=== PATIENT | female | born 1965 | race Caucasian/White ===

== ENCOUNTER 2019-03-10 10:40 | Inpatient (IN) | payer SELFPAY ==
[2019-03-10 11:28] VITALS: BMI 28.9
[2019-03-10] MEDS ORDERED: VANCOMYCIN 1.5 GM in NA CHLORIDE 0.9% 500 ML IVPB ONE (12:00)
[2019-03-10 12:02] LABS: Absolute Lymphocytes (CBC) 2.3 K/uL (0.7-4.9); Basophils % 0.6 % (0-1.3); Eosinophils % 4.5 % (0-4.4); Lymphocytes % 29.1 % (15.3-44.8); MPV 8.1 fL (7.6-11.3); Monocytes % 7.3 % (3.3-12.3); RBC Red Blood Cell Count 4.17 M/uL (3.86-4.86)
[2019-03-10 12:25] LABS: Albumin 4.1 g/dL (3.4-5.0); Bilirubin Total 0.3 mg/dL (0.2-1.0); Potassium 4.2 mmol/L (3.5-5.1); Protein, Total 8.2 g/dL (6.4-8.2)
[2019-03-10] MEDS: Levofloxacin500mg IV 500 MG/100 ML BAG IV SCH (12:47)
[2019-03-10 13:17] LABS: Urine Appearance CLOUDY; Urine Bilirubin NEGATIVE (NEG); Urine Blood NEGATIVE (NEG); Urine Color YELLOW; Urine Glucose NEGATIVE (NEG); Urine Protein TRACE (NEG); Urine Specific Gravity >=1.030 (1.005-1.030); Urine Urobilinogen 0.2 mg/dL (0.2-1.0)
[2019-03-10 13:39] LABS: Urine Bacteria 20-50 /HPF (<20); Urine Culture Reflex Order REFLEXED; Urine RBC NONE SEEN /HPF (NONE SEEN)
--- NOTE | 2019-03-10 14:48 | P.HP ---
Certification for Inpatient Patient admitted to: Inpatient With expected LOS: >2 Midnights Practitioner: I am a practitioner with admitting privileges, knowledge of patient current condition, hospital course, and medical plan of care. Services: Services provided to patient in accordance with Admission requirements found in Title 42 Section 412.3 of the Code of Federal Regulations Patient History Date of Service: 03/10/19 Reason for admission: Cellulitis, possible osteomyelitis History of Present Illness: This is a 53-year-old female with past medical history of hypertension and chronic ulceration on the legs who had an ankle surgery on January 18, 2019 after an ankle fracture. She had her cast removed on Wednesday and today and Dr. Calles' s office, she was noted to have erythema around the incision and the plate was sticking out/seen. She was then directly admitted from his office in to our facility. She states that she has had intermittent subjective fevers and chills. She does take Haynes for pain control. Cultures were drawn in orthopedics office. At the time of my exam, she was alert oriented x3 in no acute distress. She will be admitted for further management/evaluation of her cellulitis and possible osteomyelitis. Allergies amoxicillin Allergy (Verified 02/18/15 16:14) Rash cefixime [From Suprax] Allergy (Verified 05/01/12 08:39) Rash sulfamethoxazole [From Bactrim] Allergy (Verified 02/18/15 16:14) Nausea/Vomiting trimethoprim [From Bactrim] Allergy (Verified 02/18/15 16:14) Nausea/Vomiting Home medications list reviewed: Yes Home Medications: Hydrocodone Bit/Acetaminophen [Hydrocodon-Acetaminophen 5-325] 1 each PO Q8HP Lisinopril [Prinivil] 12.5 mg PO BID 03/10/19 Multivitamin [Multiple Vitamins] 1 each PO DAILY 03/10/19 - Past Medical/Surgical History Has patient received pneumonia vaccine in the past: No Diabetic: No -: HTN -: Obesity -: HTN -: Lt broken ankle -: Lt ankle sx - Social History Smoking Status: Never smoker Alcohol use: No CD- Drugs: No Caffeine use: No Place of Residence: Home Review of Systems 10-point ROS is otherwise unremarkable Physical Examination - Vital Signs Temperature: 97.7 F Blood Pressure: 143/78 Pulse: 78 Respirations: 16 Pulse Ox (%): 100 - Physical Exam General: Alert, In no apparent distress, Oriented x3 HEENT: Atraumatic, PERRLA, Mucous membr. moist/pink, EOMI, Sclerae nonicteric Neck: Supple, 2+ carotid pulse no bruit, No LAD, Without JVD or thyroid abnormality Respiratory: Clear to auscultation bilaterally, Normal air movement Cardiovascular: Regular rate/rhythm, Normal S1 S2 Gastrointestinal: Normal bowel sounds, No tenderness Musculoskeletal: No tenderness Integumentary: Erythema, Other (Left ankle: Wound noted on ankle, no discharge. Complete seen through the incision. Erythema surrounding site of incision.) Neurological: Normal gait, Normal speech, Normal strength at 5/5 x4 extr, Normal tone, Normal affect - Studies Laboratory Data (last 24 hrs) 03/10/19 11:45: Sodium 140, Potassium 4.2, BUN 19 H, Creatinine 0.74, Glucose 103, Total Bilirubin 0.3, AST 15, ALT 23, Alkaline Phosphatase 92 03/10/19 11:45: WBC 7.8, Hgb 12.9, Hct 38.0, Plt Count 316 Assessment and Plan - Problems (Diagnosis) (1) Postoperative cellulitis of surgical wound Current Visit: Yes Status: Acute Plan: Continuing the antibiotics with Levaquin and vancomycin. Labs ordered, pending She will need long-term IV antibiotics x4 weeks. Social work consulted for a long-term IV antibiotics. (2) Open left ankle fracture Current Visit: Yes Status: Acute Plan: Status post surgical fixation on January 18, 2019. Dr. Calles on board. Continue IV antibiotics. Pending OR tomorrow for washout. Qualifiers: Encounter type: sequela Open fracture type: open type I or II Qualified Code(s): S82.892S - Other fracture of left lower leg, sequela (3) Chronic ulcer skin Current Visit: Yes Status: Acute (4) Hypertension Current Visit: No Status: Chronic Plan: Stable, continue home medications. Qualifiers: Hypertension type: essential hypertension Qualified Code(s): I10 - Essential (primary) hypertension (5) Overweight (BMI 25.0-29.9) Current Visit: No Status: Acute - Plan DVT prophylaxis: Hold for procedure tomorrow GI prophylaxis: None Diet: Heart healthy; NPO after midnight for OR procedure tomorrow Disposition: Admit to floor with tele. Start IV antibiotics, pending procedure in the OR tomorrow. - Advance Directives Does patient have a Living Will: No Does patient have a Durable POA for Healthcare: No Time Spent Managing Pts Care (In Minutes): 55
[2019-03-10] MEDS: LISINOPRIL 5 MG TAB PO SCH (20:23)
[2019-03-10] MEDS: HYDROCODONE/APAP 5/325 MG TAB PO PRN (20:23)
[2019-03-11] MEDS: NA CHLORIDE 0.9% 1,000 ML IV SCH ×3 (00:05→19:22)
[2019-03-11] MEDS: VANCOMYCIN 1.5 GM in NA CHLORIDE 0.9% 500 ML IVPB SCH ×2 (00:05→13:16)
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
[2019-03-11 06:08] LABS: Absolute Lymphocytes (CBC) 1.7 K/uL (0.7-4.9); Basophils % 0.6 % (0-1.3); Eosinophils % 5.2 % (0-4.4); Hematocrit 34.7 % (36.0-45.0); Lymphocytes % 29.4 % (15.3-44.8); MPV 8.2 fL (7.6-11.3); Monocytes % 7.9 % (3.3-12.3); RBC Red Blood Cell Count 3.84 M/uL (3.86-4.86)
[2019-03-11 06:15] LABS: Potassium 4.1 mmol/L (3.5-5.1)
[2019-03-11] MEDS ORDERED: PROPOFOL 200 MG/20 ML VIAL IV ONE (08:11)
[2019-03-11] MEDS ORDERED: FENTANYL CITR 100 MCG/2 ML ONE (08:11)
[2019-03-11] MEDS ORDERED: LIDOCAINE 2% MPF 5 ML VIAL ONE (08:12)
[2019-03-11] MEDS: LISINOPRIL 5 MG TAB PO SCH ×2 (08:17→20:38)
[2019-03-11] MEDS ORDERED: DEXAMETHASONE 10 MG/ML VIAL ONE (08:43)
[2019-03-11] MEDS ORDERED: ONDANSETRON 4 MG/2 ML VIAL ONE (08:44)
[2019-03-11] MEDS ORDERED: KETOROLAC 30 MG/ML INJ ONE (08:44)
--- NOTE | 2019-03-11 09:13 | P.OP ---
Preoperative diagnosis: left ankle wound with retained implant Postoperative diagnosis: same Primary procedure: Irrigation and debridement ankle with removal of plate/screws Estimated blood loss: 20 ccs Complications: None Transferred to: Recovery Room Condition: Good
[2019-03-11] MEDS: Levofloxacin500mg IV 500 MG/100 ML BAG IV SCH (10:03)
--- NOTE | 2019-03-11 10:14 | OP ---
Date of Procedure: 03/11/2019 Surgeon: Nicolas Calles MD Preoperative Diagnosis: Left ankle wound, status post open reduction and internal fixation of ankle with exposed hardware. Postoperative Diagnosis: Left ankle wound, status post open reduction and internal fixation of ankle with exposed hardware. Procedure: Removal of left ankle lateral plate with irrigation and debridement of the wound with mac sure of the new wound, but leaving the old wound open. Estimated Blood Loss: 20 cc. Complications: There were no complications. Specimen: No pathology specimen sent. Indication For Operation: Ms. Wright is a patient who unfortunately has had trouble with her lower ex tremities and ulcer formation in the past, unfortunately obtained an ankle fracture, dislocation. Ca re was taken to allow the skin to wrinkle and for swelling to be decreased; however, there was always a question of wound healing. Unfortunately, ankle fracture, dislocation needed treatment. Therefor e, she underwent an open reduction and internal fixation of both the medial and lateral malleolus. W hen she returned to clinic, her skin looked fine and stephanie were removed. She was then placed in a long-leg cast. She came to see me in my office at 6 weeks with no apparent complaints. The cast was taken off. She did have some scabbing in that area; however, otherwise was without erythema or sign ificant pain. She was told to watch carefully as the scabbing evolved and she did. She said there w as a black area there, but unfortunately, this did reveal a wound with exposed hardware. She came to see me in my office the next day. She was immediately admitted to the hospital for IV antibiotics a nd taken to the operating room today for removal of plate and irrigation and debridement. She states she understands things as presented and wished to proceed. Description Of Procedure: The patient was taken to the operating room and placed in supine position. General anesthesia was obtained by staff. Following this, a well-padded tourniquet placed on super ior left thigh. Left lower extremity was than prepped and draped in usual sterile fashion for an ope n wound. This was followed by elevating the leg, but not exsanguinated and tourniquet was raised. A ttention was first turned to the ankle. Near the distal end of the plate extending up to the 2 dista l screws is an open area. It is elliptical in shape and probably 1.5 cm at its widest part with expo sed plate and hardware. It was initially irrigated with several cc of jet lavage. Then, the incisio n is extended up to the tip of the plate. All of this area did not show any sign of trouble. The sk in is well healed. There is no erythema or sign of infection. The screws were then removed from the plate without difficulty and plate was removed. A curette is used at the distal 2 screw holes, and the wound was jet lavaged with multiple liters of sterile saline at low pressure. The superior aspec t of the incision which was established today was reclosed. The inferior aspect was left open with a small saline soaked 4 x 4 and then overlaid by other 4 x 4's and wrapped with Kerlix. The patient w as then awakened and taken to the operating room in good condition. It should be noted that the frac ture line itself was not visible at this time and that the screw holes as well as the wound itself rincon ve no sign of purulence. There is also no surrounding erythema. The patient was awakened and taken to recovery room in good condition. /CLARENCE Voice ID: [id number] Report ID: [id number]
--- NOTE | 2019-03-11 10:48 | RAD REPORT ---
EXAM DESCRIPTION: RAD - Ankle Left 2 View - 03/11/2019 9:34 am FINDINGS: There were 3 portable C-arm views submitted from a fluoroscopic assisted left ankle fractu re repair. No suspicious or unexpected finding. Fluoro time was 0.1 minutes.
--- NOTE | 2019-03-11 12:04 | P.PN ---
Subjective Date of Service: 03/11/19 Chief Complaint: Cellulitis, possible osteomyelitis Subjective: No C/O voiced, Improving Patient seen and examined at bedside. No family at bedside. Chart reviewed and case discussed with nursing staff. No acute events noted overnight Pending OR for surgery today Review of Systems 10-point ROS is otherwise unremarkable Physical Examination - Vital Signs Temperature: 97.3 F Blood Pressure: 141/81 Pulse: 78 Respirations: 16 Pulse Ox (%): 98 - Physical Exam General: Alert, In no apparent distress, Oriented x3 HEENT: Atraumatic, PERRLA, EOMI Neck: Supple, JVD not distended Respiratory: Clear to auscultation bilaterally, Normal air movement Cardiovascular: Regular rate/rhythm, Normal S1 S2 Gastrointestinal: Normal bowel sounds, No tenderness Musculoskeletal: No tenderness Integumentary: Skin breakdown, Skin lesion, Other (Hardware seen in left ankle) Neurological: Normal speech, Normal tone, Normal affect - Studies Laboratory Data (last 24 hrs) 03/11/19 05:37: Sodium 142, Potassium 4.1, BUN 13, Creatinine 0.70, Glucose 107 H 03/11/19 05:37: WBC 5.8 D, Hgb 12.2, Hct 34.7 L, Plt Count 270 03/10/19 11:45: Sodium 140, Potassium 4.2, BUN 19 H, Creatinine 0.74, Glucose 103, Total Bilirubin 0.3, AST 15, ALT 23, Alkaline Phosphatase 92 03/10/19 11:45: WBC 7.8, Hgb 12.9, Hct 38.0, Plt Count 316 Microbiology Data (last 24 hrs): 03/10/19 09:45 Wound - Left Ankle Gram Stain - Final Assessment And Plan - Current Problems (Diagnosis) (1) Postoperative cellulitis of surgical wound Current Visit: Yes Status: Acute Plan: Continue IV antibiotics with Levaquin and vancomycin. She will need long-term IV antibiotics x4 weeks. Infectious disease consulted, awaiting recommendations. Social work consulted for a long-term IV antibiotics. (2) Open left ankle fracture Current Visit: Yes Status: Acute Plan: Status post surgical fixation on January 18, 2019. Dr. Calles on board. Continue IV antibiotics. Pending OR today for washout and hardware removal. Qualifiers: Encounter type: sequela Open fracture type: open type I or II Qualified Code(s): S82.892S - Other fracture of left lower leg, sequela (3) Chronic ulcer skin Current Visit: Yes Status: Acute (4) Hypertension Current Visit: No Status: Chronic Plan: Stable, continue home medications. Qualifiers: Hypertension type: essential hypertension Qualified Code(s): I10 - Essential (primary) hypertension (5) Overweight (BMI 25.0-29.9) Current Visit: No Status: Chronic - Plan DVT prophylaxis: SCDs GI prophylaxis: None Diet: Heart healthy after procedure Disposition: Continue IV antibiotics, pending procedure in the OR today, half-way IV antibiotics setup
[2019-03-11] MEDS: HYDROCODONE/APAP 5/325 MG TAB PO PRN (20:38)
[2019-03-12] MEDS: VANCOMYCIN 1.5 GM in NA CHLORIDE 0.9% 500 ML IVPB SCH ×2 (01:38→14:15)
[2019-03-12 05:38] LABS: Absolute Lymphocytes (CBC) 1.9 K/uL (0.7-4.9); Basophils % 0.2 % (0-1.3); Eosinophils % 0.3 % (0-4.4); Hematocrit 31.6 % (36.0-45.0); Lymphocytes % 30.5 % (15.3-44.8); MPV 8.4 fL (7.6-11.3); Monocytes % 7.2 % (3.3-12.3); RBC Red Blood Cell Count 3.45 M/uL (3.86-4.86)
[2019-03-12 05:49] LABS: BUN Blood Urea Nitrogen 12 mg/dL (7-18); Bicarbonate 26 mmol/L (21-32); Glucose Level 100 mg/dL (74-106); Magnesium 2.2 mg/dL (1.8-2.4); Phosphorus 3.3 mg/dL (2.5-4.9); Potassium 3.6 mmol/L (3.5-5.1); Sodium Level 144 mmol/L (136-145)
[2019-03-12] MEDS: NA CHLORIDE 0.9% 1,000 ML IV SCH ×3 (06:00→16:00)
[2019-03-12] MEDS: LISINOPRIL 5 MG TAB PO SCH ×2 (08:34→20:51)
[2019-03-12] MEDS ORDERED: POTASSIUM CL SA 10 MEQ TAB PO ONE (09:00)
--- NOTE | 2019-03-12 10:12 | P.PN ---
Subjective Date of Service: 03/12/19 Chief Complaint: Cellulitis, possible osteomyelitis Subjective: Improving Patient seen and examined at bedside. No family at bedside. Chart reviewed and case discussed with nursing staff. No acute events noted overnight Status post hardware removal and washout. Doing well this morning. Denies any pain at this time. Review of Systems 10-point ROS is otherwise unremarkable Physical Examination - Vital Signs Temperature: 97.6 F Blood Pressure: 124/65 Pulse: 69 Respirations: 18 Pulse Ox (%): 99 - Physical Exam General: Alert, In no apparent distress, Oriented x3 HEENT: Atraumatic, PERRLA, EOMI Neck: Supple, JVD not distended Respiratory: Clear to auscultation bilaterally, Normal air movement Cardiovascular: Regular rate/rhythm, Normal S1 S2 Gastrointestinal: Normal bowel sounds, No tenderness Musculoskeletal: No tenderness Integumentary: Other (Left ankle) Neurological: Normal speech, Normal tone, Normal affect Lymphatics: No axilla or inguinal lymphadenopathy - Studies Laboratory Data (last 24 hrs) 03/12/19 05:09: Sodium 144, Potassium 3.6, BUN 12, Creatinine 0.66, Glucose 100 , Phosphorus 3.3, Magnesium 2.2 03/12/19 05:09: WBC 6.2, Hgb 10.7 L, Hct 31.6 L, Plt Count 257 Microbiology Data (last 24 hrs): 03/10/19 09:45 Wound - Left Ankle Gram Stain - Final 03/10/19 09:45 Wound - Left Ankle Culture & Sensitivity - Final Staph Aureus Escherichia Coli Escherichia Coli#2 03/10/19 12:25 Clean Catch Urine [place] Count - Final BETWEEN 10,000 & 100,000 CFU/ML 03/10/19 12:25 Clean Catch Urine - Final MIXED MASSIEL. Assessment And Plan - Current Problems (Diagnosis) (1) Postoperative cellulitis of surgical wound Current Visit: Yes Status: Acute Plan: Continue IV antibiotics with Levaquin and vancomycin. She will need long-term IV antibiotics x4 weeks. Infectious disease consulted, awaiting recommendations. Social work consulted for a long-term IV antibiotics. (2) Open left ankle fracture Current Visit: Yes Status: Acute Plan: Status post surgical fixation on January 18, 2019. Dr. Calles on board. Continue IV antibiotics. Pending OR today for washout and hardware removal. Qualifiers: Encounter type: sequela Open fracture type: open type I or II Qualified Code(s): S82.892S - Other fracture of left lower leg, sequela (3) Chronic ulcer skin Current Visit: Yes Status: Acute (4) Hypertension Current Visit: No Status: Chronic Plan: Stable, continue home medications. 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
[2019-03-12] MEDS: Levofloxacin500mg IV 500 MG/100 ML BAG IV SCH (11:33)
[2019-03-12] MEDS: HYDROCODONE/APAP 5/325 MG TAB PO PRN (17:31)
--- NOTE | 2019-03-12 23:23 | PN ---
Date of Progress Note: 03/12/2019 The patient is seen today. She is relatively comfortable. Her dressing is clean, dry, and intact. She is able to move her toes easily. She is neurovascularly intact. She has been afebrile. Her cul tures do come back with Staphylococcus aureus which is sensitive to oxacillin this being MSSA. Also culture comes back with 2 different E coli, both of which are pansensitive to normal antibiotic. It should be noted that these cultures are from the wound and some of these may be contaminated or not a ctually contributory. However, these are the cultures that we have at this time. The antibiotics emily is currently on definitely cover all of the cultured organisms. Infectious Disease will be giving input tomorrow. There is concern about wound coverage. There are also concerns about duration and t ype of antibiotics. This has been discussed with the patient. We will otherwise continue to follow. Most likely, we will obtain a Wound Care consult. SANDRA Voice ID: [id number] Report ID: [id number]
[2019-03-13] MEDS: VANCOMYCIN 1.5 GM in NA CHLORIDE 0.9% 500 ML IVPB SCH ×2 (00:57→13:00)
[2019-03-13] MEDS: NA CHLORIDE 0.9% 1,000 ML IV SCH ×4 (02:00→23:00)
[2019-03-13 06:05] LABS: Absolute Lymphocytes (CBC) 2.3 K/uL (0.7-4.9); Basophils % 0.5 % (0-1.3); Eosinophils % 1.8 % (0-4.4); Lymphocytes % 37.8 % (15.3-44.8); MPV 8.2 fL (7.6-11.3); Monocytes % 5.9 % (3.3-12.3); RBC Red Blood Cell Count 3.62 M/uL (3.86-4.86)
[2019-03-13 06:18] LABS: BUN Blood Urea Nitrogen 10 mg/dL (7-18); Bicarbonate 29 mmol/L (21-32); Glucose Level 92 mg/dL (74-106); Potassium 3.8 mmol/L (3.5-5.1); Sodium Level 144 mmol/L (136-145)
[2019-03-13] MEDS: LISINOPRIL 5 MG TAB PO SCH ×2 (08:36→21:03)
[2019-03-13] MEDS ORDERED: POTASSIUM CL SA 10 MEQ TAB PO ONE (09:00)
[2019-03-13] MEDS: Levofloxacin500mg IV 500 MG/100 ML BAG IV SCH (11:32)
--- NOTE | 2019-03-13 12:52 | CON ---
Date of Consultation: 03/13/2019 Reason For Consultation: Infected wound, left ankle. History Of Present Illness: The patient is a 53-year-old female, who underwent an ORIF of a left ank le fracture dislocation approximately 6 weeks ago and then last week was noted to have infection with exposed hardware, was taken to the OR, cultures were done. Hardware was removed. The wound is parti ally open and I was consulted for wound care management. The cultures were reviewed they include sta ph and E coli. There were done in the office of Dr. Calles. There is no purulent discharge. The re is no fever or chills. There is pain and discomfort and no other complaints. No sore throat, run ny nose, cough, headaches, or dizziness. No chest pain. Review of Systems: Otherwise unremarkable. Past Medical History: Significant for hypertension, obesity. Past Surgical History: ORIF, left ankle. Allergies: INCLUDE AMOXICILLIN, , BACTRIM. Social History: Patient does not smoke. Does not drink alcohol. Family History: Noncontributory. Physical Examination: Vital Signs: Stable. She is afebrile. She is awake, alert, and oriented x3. Head and neck: Cranial nerves 2 through 12 grossly within normal limits. No neck masses. No JVD. Throat clear. Neck is supple. Chest: Clear. Heart: S1, S2. Abdomen: Soft. Extremities: Palpable dorsalis pedis and posterior tibial pulses. On the lateral aspect of the left ankle there is approximately a wound of about 10 cm in length. The proximal 7.5 cm are sutured clos ed and the distal 2.5 cm are open with granulation tissue and fibrin. It look fairly not that deep. T here is minimal erythema surrounding it but there is no purulent discharge. Laboratory Data: Reviewed. White count is 6.1. Her sedimentation rate was 42 on Wednesday. Her chemi stry is within normal limits. C-reactive protein was elevated at 4.84 and ankle x-ray done on the , there was no suspicious or unexpected findings. Assessment: Infected wound, left ankle. Recommendations: IV antibiotics per Infectious Disease. Duration to be determined by them as I am n ot sure whether patient has osteomyelitis or not. Should the patient have osteo it should be for 6 w eeks. If not, she can be converted to oral antibiotics. The bacterias are sensitive to oral antibio tics. As far as wound care is concerned is not deep enough for wound VAC at this time. I would anastasia mmend collagenase with wet-to-dry daily dressing changes and she can follow up with me [facility] upon discharge, and once there is a little bit more granulation tissue, then synthetic graft can be considered to close the wound. /MODAlva Voice ID: [id number] Report ID: [id number]
--- NOTE | 2019-03-13 15:24 | P.PN ---
Subjective Date of Service: 03/13/19 Primary Care Provider: None Chief Complaint: Cellulitis, possible osteomyelitis Subjective: No C/O voiced, Improving Patient seen and examined at bedside. No family at bedside. Chart reviewed and case discussed with nursing staff. No acute events noted overnight Status post hardware removal and washout. Doing well this morning. Denies any pain at this time. Review of Systems 10-point ROS is otherwise unremarkable Physical Examination - Vital Signs Temperature: 97.2 F Blood Pressure: 149/94 Pulse: 75 Respirations: 20 Pulse Ox (%): 99 - Physical Exam General: Alert, In no apparent distress, Oriented x3 HEENT: Atraumatic, PERRLA, EOMI Neck: Supple, JVD not distended Respiratory: Clear to auscultation bilaterally, Normal air movement Cardiovascular: Regular rate/rhythm, Normal S1 S2 Gastrointestinal: Normal bowel sounds, No tenderness Musculoskeletal: No tenderness, Other (bandage clear/dry/intact) Integumentary: No rashes Neurological: Normal speech, Normal tone, Normal affect Lymphatics: No axilla or inguinal lymphadenopathy - Studies Laboratory Data (last 24 hrs) 03/13/19 05:22: Sodium 144, Potassium 3.8, BUN 10, Creatinine 0.66, Glucose 92 03/13/19 05:22: WBC 6.1, Hgb 11.4 L, Hct 33.0 L, Plt Count 251 Assessment And Plan - Current Problems (Diagnosis) (1) Postoperative cellulitis of surgical wound Current Visit: Yes Status: Acute Plan: Continue IV antibiotics with Levaquin. Vancomycin discontinued by ID. Infectious disease consulted, recommendations appreciated. Social work consulted for resources. (2) Open left ankle fracture Current Visit: Yes Status: Acute Plan: Status post surgical fixation on January 18, 2019. Dr. Calles on board. Continue IV antibiotics. s/p OR for washout and hardware removal. Qualifiers: Encounter type: sequela Open fracture type: open type I or II Qualified Code(s): S82.892S - Other fracture of left lower leg, sequela (3) Chronic ulcer skin Current Visit: Yes Status: Acute (4) Hypertension Current Visit: No Status: Chronic Plan: Stable, continue home medications. Qualifiers: Hypertension type: essential hypertension Qualified Code(s): I10 - Essential (primary) hypertension (5) Overweight (BMI 25.0-29.9) Current Visit: No Status: Chronic - Plan DVT prophylaxis: SCDs GI prophylaxis: None Diet: Heart healthy after procedure Disposition: Per ID evaluation, conitnue Levaquin only. Pending bone scan results - if no bone involvement, can do PO levaquin 500 mg Qd x 3 weeks. If bone involvement noted on bone scan, she will need IV antibiotics with levaquin for 4-6 weeks.
--- NOTE | 2019-03-13 17:28 | CON ---
History Of Present Illness: The patient is a 53-year-old female coming in with status post left ankl e surgery with infected wound site and plates were taken out from the ankle surgery, which was done o January 18. The patient denies any headache, nausea, vomiting, chest pain, abdominal pain, constipati on, fevers. Surgical debridement was done on Wednesday and plates and screws were taken out. Past Medical History: Hypertension, obesity, currently being treated with vancomycin and Levaquin. Allergies: AMOXIL, CEPHALOSPORIN AND BACTRIM. Social History: Nonsmoker, nondrinker. Family History: Noncontributory. Medications: Vancomycin and Levaquin. Review of Systems: A 10-point review was performed. Physical Examination: General: This is a 53-year-old female, lying in bed, not in any acute cardiopulmonary distress. Vital Signs: Temperature 97.2, pulse 75, respirations 16, blood pressure 149/94. HEENT: Unremarkab le. Neck: Supple. Lungs: Clear to auscultation. Heart: S1, S2. Regular. Abdomen: Soft, nontender. Bowel sounds present. Extremity: Left ankle wound noted. Sutures on place. Good granulation tissue. No signs of slough or necrotic tissue at this time. Laboratory Data: Shows WBC 6.1, hemoglobin 11.4, platelets are 251. Chemistry shows sodium 144, pot assium 3.8, chloride 110, bicarb 29, BUN 10, creatinine 0.6, glucose 92. Micro data shows Staph and Escherichia coli sensitive to quinolone. Assessment And Plan: Left ankle wound status post surgical debridement. Recommend to apply Medihone y to the wound side and Xeroform to the sutures area, cover with alginate on daily basis. Recommend also to continue Levaquin and stop vancomycin. We will follow the patient as needed. Thank you Dr. Ramírez for consult. NF/GWENL Voice ID: [id number] Report ID: [id number]
[2019-03-13] MEDS: PROMOD 30 ML DOSE PO SCH (21:11)
[2019-03-14 06:10] LABS: Potassium 3.8 mmol/L (3.5-5.1)
[2019-03-14] MEDS ORDERED: POTASSIUM CL SA 10 MEQ TAB PO ONE (06:28)
[2019-03-14] MEDS: NA CHLORIDE 0.9% 1,000 ML IV SCH ×3 (08:00→22:46)
[2019-03-14] MEDS ORDERED: COLLAGENASE 30 GM OINTMENT TOP SCH (09:00)
[2019-03-14] MEDS: LISINOPRIL 5 MG TAB PO SCH ×2 (09:12→20:35)
[2019-03-14] MEDS: MEDIHONEY 44 ML TOPICAL TUBE TOP SCH (09:15)
[2019-03-14] MEDS: PROMOD 30 ML DOSE PO SCH ×2 (09:26→20:41)
--- NOTE | 2019-03-14 11:47 | RAD REPORT ---
EXAM DESCRIPTION: NM - Bone Imaging Three Phase - 03/14/2019 11:33 am CLINICAL HISTORY: Osteomyelitis COMPARISON: None. TECHNIQUE: The patient was administered 26.3 mCi Tc 99m MDP. Dynamic flow imaging was performed at the area of interest. Immediate blood pool and 3-4 hour delayed images were obtained. FINDINGS: Dynamic flow imaging shows increased activity around the left ankle joint. No abnormal act ivity in the right leg on flow imaging. Blood pool imaging and delayed imaging shows persistent abnor mal activity in the distal left tibial plafond and medial malleolus region as well as in the distal f ibula. There is abnormal activity on all 3 phases of the bone scan. However, patient had hardware rem oval only a few days earlier. Available history indicates fracture with surgery January 2019. Current findings are nonspecific. Abnormality on all 3 phases of bone scan can indicate osteomyelitis . However, bone scan can be abnormal given the recent fracture change to the ankle. Additionally, rem oval of hardware can result in increased bone activity. Delayed imaging shows focal activity along the lateral aspect of the foot possibly a fifth metacarpal base injury related to trauma. This can be correlated with plain films. IMPRESSION: Three-phase bone scan shows abnormal activity on all 3 phases at the left ankle. This pa ttern can be seen with osteomyelitis. However, to would be somewhat unusual for both the tibia and fi bula to be infected. The distal tibia and fibula fractures are relatively recent and there has been additional hardware re moval. Both of these can result can abnormal activity. Lateral midfoot activity suspected to be a fifth metatarsal injury, probably related to the fracture event.
[2019-03-14] MEDS: Levofloxacin500mg IV 500 MG/100 ML BAG IV SCH (12:16)
[2019-03-14] MEDS: HYDROCODONE/APAP 5/325 MG TAB PO PRN ×2 (12:26→22:46)
--- NOTE | 2019-03-14 14:24 | PN ---
Date of Progress Note: 03/14/2019 Subjective: The patient seen and examined. Chart reviewed and case discussed with RN. The patient reports that the pain is well controlled. Treatment plan explained, all questions answered. No fami ly at the bedside. Medications: List reviewed. Physical Examination: Vital Signs: Temperature 97.7, heart rate 69, blood pressure 156/95, respirations 20, O2 98% on room air. General: Awake, alert, oriented x3. Some mild distress, ill-appearing female. CV: S1 and S2. Regular rate and rhythm. Peripheral pulses present. Respiratory: Clear to auscultation bilaterally. No wheezing or stridor. No use of accessory muscle s. Gastrointestinal: Abdomen is soft, nontender, nondistended. Positive bowel sounds. No guarding or rigidity. Extremities: No clubbing, cyanosis, or edema. Neurologic: Nonfocal. Cranial nerves 2 through 12 intact grossly. No focal neurological deficits. Sensation intact to light touch. Musculoskeletal: Decreased range of motion, left ankle. Skin: Left ankle wound is bandaged, wrapped, clean, dry and intact. Laboratory Data: Sodium 144, potassium 3.8, chloride 108, CO2 29, BUN 12, creatinine 0.74, glucose 1 02, calcium 9.3. WBC pending. Microbiology: Wound ankle culture growing out Staph aureus which is MSSA and E coli. Escherichia co li sensitive to Levaquin. Assessment And Plan: A 53-year-old female with: 1.Postoperative cellulitis of surgical wound of the left ankle secondary to Methicillin-sensitive St aphylococcus aureus and Escherichia coli. ID on board. The patient currently on Levaquin, which vyas s show insensitivity to Methicillin-sensitive Staphylococcus aureus. We will discuss further with ID . 2.Open left ankle fracture, status post open reduction and internal fixation, January 18 with hardware, now with removal and washout due to infection. Orthopedics on board. 3.Chronic skin ulcer. 4.Essential hypertension, stable. Continue home medications. 5.Overweight, BMI 29. Plan: We will continue with IV antibiotics. Follow up on cultures. Bone scan scheduled for today. If the patient has osteo, then we will need IV antibiotics. Otherwise, we will likely discharge caroline e with oral antibiotics for 2 weeks. We will discuss further with ID. /CLARENCE Voice ID: [id number] Report ID: [id number]
[2019-03-14] MEDS: DOXYCYCLINE 100 MG CAP PO SCH (20:35)
[2019-03-15 06:07] LABS: Absolute Lymphocytes (CBC) 2.3 K/uL (0.7-4.9); Basophils % 0.6 % (0-1.3); Eosinophils % 5.3 % (0-4.4); Hematocrit 33.6 % (36.0-45.0); Lymphocytes % 32.3 % (15.3-44.8); MPV 8.4 fL (7.6-11.3); Monocytes % 6.1 % (3.3-12.3); RBC Red Blood Cell Count 3.72 M/uL (3.86-4.86)
[2019-03-15 06:12] LABS: Potassium 3.5 mmol/L (3.5-5.1)
[2019-03-15] MEDS ORDERED: POTASSIUM CL SA 10 MEQ TAB PO ONE ×2 (09:00)
[2019-03-15] MEDS: NA CHLORIDE 0.9% 1,000 ML IV SCH (10:04)
[2019-03-15] MEDS: DOXYCYCLINE 100 MG CAP PO SCH (10:05)
[2019-03-15] MEDS: LISINOPRIL 5 MG TAB PO SCH (10:05)
[2019-03-15] MEDS: MEDIHONEY 44 ML TOPICAL TUBE TOP SCH (10:10)
[2019-03-15] MEDS: PROMOD 30 ML DOSE PO SCH (10:11)
[2019-03-15 13:00] VITALS: O2SAT 98
[2019-03-15 14:41] VITALS: BP 165/87; TEMP 98.6
--- NOTE | 2019-03-15 17:27 | PN ---
Subjective: The patient lying in bed. No new acute event. Chart reviewed. Objective: Vital signs: Reviewed. Extremities: Examination of left leg shows good granulation tissue. Sutures are in place. No exces sive drainage or anything noted. The patient has staph and E coli is sensitive to Levaquin. Laboratory Data: WBC 7.1, hemoglobin 12, platelets are 296. Chemistry shows sodium 143, potassium 3 .5, chloride 107, bicarb 28, BUN 15, creatinine 0.8. Glucose is 96. NF/MODL Voice ID: [id number] Report ID: [id number]
--- NOTE | 2019-03-15 23:52 | DS ---
Date of Discharge: 03/15/2019 Consultants: Dr. Quesada with Infectious Disease, Dr. Hoskins with General Surgery, Dr. Calles with Orthopedic Surgery. Procedures: 03/11/2019, by Dr. Calles, removal of hardware from left ankle with irrigation and de bridement of the wound with closure of the new wound, but leaving the old wound open. Admitting Diagnoses: 1.Postoperative cellulitis of surgical wound of the left ankle. 2.Open left ankle fracture sequela. 3.Chronic ulceration of the skin. 4.Essential hypertension. 5.Overweight, BMI 29. Discharge Diagnoses: 1.Postoperative cellulitis of surgical wound of the left ankle secondary to MSSA and E coli sequela. 2.Open left ankle fracture, status post ORIF with exposed hardware, status post removal of hardware and washout. 3.Chronic skin ulcer. 4.Essential hypertension, stable. 5.Overweight, BMI 29. 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 After the cast was kuldip marlena in orthopedic's office, she was noted to have erythema and hardware was exposed. She was admitte d to the hospital for revision debridement, washout, and removal of the hardware. The patient was st arted on broad-spectrum IV antibiotics. Cultures were obtained. Wound culture grew out Staph aureus , which was methicillin sensitive and 2 different strains of E coli. The patient was also seen by In fectious Disease as well as Dr. Hoskins with General Surgery for possible wound VAC placement. The pat ient responded well to treatment. She did not require wound VAC placement. Her bone scan showed abn ormal activity on 3 phases of the left ankle. Pattern can be seen with osteomyelitis. However, it c ould be due to the inflammation due to recent hardware removal and it is unusual for both tibia and f ibula to be infected, lateral left foot activity suspected to be fifth metatarsal injury probably rel ated to the fracture event. The patient was then recommended to be discharged on oral antibiotics fo r 3 weeks per Infectious Disease. The patient understands that she will need to have wound care perf ormed. She is unfunded and unfortunately there is no home health that can be set up. She does have help at home. They can help her change her dressings and wrap her ankle. She will continue with Med ihoney and alginate. Continue with protein supplementation. She will need to follow Dr. Calles's orders regarding nonweightbearing on the left heel. The patient will need to follow up with Dr. Jessica cueto in 2 weeks; follow up with ID, Dr. Quesada, in 2 weeks; follow up with general surgeon, Dr. Wander rincon, in 1 week at the [facility] healing center; follow up with PCP, Dr. Rock, in 2-3 days. Diet: Heart-healthy. Activity: Nonweightbearing, left heel. Medications: As per medication reconciliation list. Physical Examination: General: Awake, alert, oriented x3. No acute distress. CV: S1, S2. Respiratory: Moving air well bilaterally. Abdomen: Soft, nontender, nondistended. Positive bowel sounds. Extremities: No clubbing, cyanosis, edema. Neuro: Nonfocal. Musculoskeletal: Left ankle incision site clean, dry, intact, wrapped. No drainage. No erythema or signs of acute infection. Total time spent discharging the patient was 47 minutes. The patient is to return to ER for worsenin g condition. She understands to watch for signs of infection including erythema, swelling, redness, pain, fever, chills. SA/MODL Voice ID: [id number] Report ID: [id number]
== END 2019-03-15 14:55 | disposition home or self-care (01) | DRG 493 ==
LOC: 2ND 10:47
PROVIDERS: ADMIT Family Medicine; ATTEND Family Medicine
PROC: 0HDNXZZ Extraction of Left Foot Skin, External Approach (ICD-10-PCS; 2019-03-11)
PROC: 0SPG04Z Removal of Internal Fixation Device from Left Ankle Joint, Open Approach (ICD-10-PCS; principal; 2019-03-11 10:30)
DX: T84.59XA Infection and inflammatory reaction due to other internal joint prosthesis, initial encounter (principal); L03.116 Cellulitis of left lower limb; L97.329 Non-pressure chronic ulcer of left ankle with unspecified severity; B96.20 Unspecified Escherichia coli [E. coli] as the cause of diseases classified elsewhere; B95.61 Methicillin susceptible Staphylococcus aureus infection as the cause of diseases classified elsewhere; Z16.19 Resistance to other specified beta lactam antibiotics; I10 Essential (primary) hypertension; E66.3 Overweight; Z68.29 Body mass index [BMI] 29.0-29.9, adult; Z88.1 Allergy status to other antibiotic agents; Z88.2 Allergy status to sulfonamides
CPT/HCPCS: 36415; 78315; 80048; 80053; 80202; 81001; 83735; 84100; 85025; 85652; 86140; 87070; 87077; 87086; 87088; 87186; 87205; 88300; 94760; 94762; A9503; J1100; J2405; J2704; J3010; J3590; J7030